=== PATIENT | female | born 1960 | race Caucasian/White ===

== ENCOUNTER 2019-11-08 07:57 | Outpatient (CLI) | payer OTHER, SELFPAY ==
--- NOTE | 2019-11-08 06:00 | DI.RAD_ITS ---
EXAM: XR PAIN CLINIC FLUORO JOINT IN CLINICAL HISTORY: Dx: Osteoarthritis of right knee, RT GENICULAR RADIOFREQUENCY ABLATION TECHNIQUE: 2D and realtime digital imaging was performed. Fluoroscopy was provided for Dr. Smith for guidance with performing radiofrequency ablation. COMPARISON: No exams were available for comparison FINDINGS: Fluoroscopy was provided for Dr. Smith for guidance with performing radiofrequency ablation. Please see procedure note for details. Images show a knee prosthesis. Fluoro time: 96.4 seconds RADIATION DOSE DELIVERED:
[2019-11-08 08:16] VITALS: BP 97/69; PULSE 58; RESP 16; TEMP 36.4; O2SAT 99
[2019-11-08] MEDS: Midazolam 2 MG/2 ML VIAL IVP (08:35)
[2019-11-08 09:18] VITALS: BP 124/80; PULSE 61; RESP 17; O2SAT 100
--- NOTE | 2019-11-08 09:25 | PDOC.PAIN_ITS ---
Pain Clinic Procedure Note Procedure Note Procedure Note: RIGHT GENICULAR NERVE RADIOFREQUENCY ABLATION WITH THE COOLIEF MACHINE Date of Service: November 08, 2019 Patient: Daly Baker Provider: Bridger Smith DO, MPH Pre-operative diagnosis: Right knee osteoarthritis Post-operative diagnosis: Same COMMENTS: Previous Genicular nerve block to the RIGHT knee X 2. Daly Baker has been [facility] for RIGHT genicular nerve radiofrequency ablation. Daly was interviewed and the medical record reviewed. There were no medical, pharmacologic, radiographic or other structural contraindications to attempting fluoroscopically guided RIGHT genicular nerve radiofrequency ablation. Risks and potential side effects as well as potential benefit of the procedure were reviewed with Daly Baker , and HER voiced concerns were addressed. After I believed that the patient was completely informed, the printed consent form was signed. Standard time-out procedure was performed. Daly was placed in the supine position on the fluoroscopy table and automated blood pressure cuff and pulse oximeter applied. The skin entry points for approaching RIGHT superolateral genicular nerve, the superomedial genicular nerve, superior genicular nerve, and the inferomedial genicular was identified under the most advantageous fluoroscopic view and marked. Following thorough Chlorhexadine preparation of the skin and draping, 1% lidocaine infiltration of the skin entry point and subcutaneous tissues was accomplished using a 1.5 25G needle. Next, the 10 cm 18G RF Cannula with a 10 mm active tip was advanced to os at the location of the specific nerve roots (3) using fluoroscopic guidance. Next, sensory and motor testing was performed and no abnormal findings were found. Next, 1 cc of 2% Lidocaine was injected at each site. The lesion was then created with 80 degrees C for 90 seconds. Each needle was advance 1 cm and the lesion was completed again. Each cannula was advanced until the tip reached the posterior aspect of the bone shaft. 2 cc of 0.5% Bupivacaine was injected at each site after the ablation and the needle was withdrawn. The needles were removed without difficulty. Daly's vital signs were stable throughout the procedure and were as recorded in the docflowsheet by the nursing staff. If given, dosages of intravenous drugs for anxiolysis and analgesia were documented in MAR. Follow up plans and appointments were discussed with the Daly Baker . Post procedure instruction was given as documented in nursing documentation and having met discharge criteria, Daly was discharged from the [facility]. COMMENTS: No complications. Colten WJ1, Raymon SJ, Omega JG, Lachelle JG, Rousseau SETH, Park PH, Oneill JW. Radiofrequency treatment relieves chronic knee osteoarthritis pain: a double-blind randomized controlled trial. Pain. 2010;152(3):481-7. doi: 10.1016/j.pain.2009.09.029. Latrice S1, Fidencio ON2, Jareth Y3, ?zl?christo P2, Alex U1, Tejinder ?m?rl? I. Which one is more effective for the clinical treatment of chronic pain in knee ost eoarthritis: radiofrequency neurotomy of the genicular nerves or intra-articular injection? Int J Rheum Dis. 2016 Sep 18. F/U with our office as needed. I personally performed this entire procedure. Bridger Smith DO, MPH Attending Physician in Pain Management
[2019-11-08] MEDS: Bupivacaine 0.5% Pres-Free 10 ML VIAL IJ (09:42)
[2019-11-08] MEDS: Lidocaine 2% Pres-Free 5 ML VIAL IJ (09:43)
[2019-11-08] MEDS: Lidocaine 1% Pres-Free 30 ML VIAL IJ (09:43)
== END 2019-11-08 08:17 ==
PROVIDERS: Visit Provider Preventive Medicine Occupational Medicine
DX: M17.11 Unilateral primary osteoarthritis, right knee (principal); M25.561 Pain in right knee
CPT/HCPCS: 64624; 77002; J2250